=== PATIENT | female | born 1965 | race Caucasian/White ===

== ENCOUNTER 2020-07-22 18:36 | Emergency (ER) | payer OTHER ==
[2020-07-22] MEDS ORDERED: PREVAGEN10 MG PO (19:42)
[2020-07-22 20:02] LABS: HEMATOCRIT 40.3 % (37.0-47.0); HEMOGLOBIN 13.3 g/dl (12.0-16.0); IMMATURE GRANULOCYTES 0.4 % (0.0-5.0); MEAN CELL VOLUME 94.2 fL CALC (80.0-100.0); MEAN CORPUSCULAR HGB 31.1 pG CALC (26.0-32.0); NEUT# 6.59 thou/uL (2.00-7.15); RED BLOOD COUNT 4.28 mill/uL (4.20-5.60); RED CELL DISTRI WIDTH 12.2 % (11.5-15.5)
[2020-07-22 20:19] LABS: ALBUMIN 3.9 g/dL (3.2-5.0); ALKALINE PHOSPHATASE 52 u/l (38-126); ANION GAP 9 (6-22 (CALC)); BILIRUBIN, TOTAL 0.6 mg/dL (0.0-1.4); BUN 16 mg/dL (7-17); BUN/CREATININE RATIO 23 (12-20 (CALC)); CARBON DIOXIDE 25 mmol/l (22-30); CHLORIDE 103 mmol/l (95-108); CREATININE 0.7 mg/dL (0.5-1.0); GFR > 60 ML/MIN (>=60 (CALC)); GFR FOR AFR.AMER. > 60 ML/MIN (>=60 (CALC)); POTASSIUM 4.1 mmol/l (3.5-5.1); SGOT/AST 22 u/l (14-36); SODIUM 133 mmol/l (137-146); TOTAL PROTEIN 6.4 g/dL (6.3-8.2)
[2020-07-22 21:00] VITALS: BP 130/79
== END 2020-07-22 21:00 | disposition home or self-care (01) | DRG 556 ==
LOC: ED 18:36
PROVIDERS: Emergency Medicine
DX: M79.661 Pain in right lower leg (principal)